=== PATIENT | male | born 1995 | race Caucasian/White ===

== ENCOUNTER 2017-11-28 05:42 | Day surgery (SDC) | payer OTHER ==
[2017-11-28] MEDS ORDERED: Ketamine HCl 50 MG/ML IV ONE (05:43)
[2017-11-28] MEDS ORDERED: DIPRIVAN 200 MG/20 ML IV ONE (05:43)
[2017-11-28] MEDS ORDERED: Lactated Ringers 1,000 ML IV ONE (06:04)
[2017-11-28] MEDS ORDERED: Lactated Ringers 1,000 ML IV SCH ×2 (06:30)
[2017-11-28 08:32] VITALS: O2SAT 98
[2017-11-28 08:37] VITALS: BP 152/84; PULSE 152
--- NOTE | 2017-11-28 12:29 | OP ---
SURGERY DATE/TIME: 11/28/2017 0700 PREOPERATIVE DIAGNOSES: 1) Gastroesophageal reflux disease. 2) Chest pain. POSTOPERATIVE DIAGNOSIS: Normal exam. PROCEDURE: Diagnostic EGD. SURGEON: Jacob Noble M.D. ANESTHESIA: MAC by Dejuan Galloway CRNA. ESTIMATED BLOOD LOSS: None. SPECIMENS: None. DESCRIPTION OF PROCEDURE: After informed written consent was obtained, the patient was taken to the endoscopy suite. He underwent monitored anesthesia and a bite block was inserted. The endoscope was inserted into the posterior oropharynx and under direct visualization the esophagus was easily traversed. There were no obvious mucosal abnormalities. Upon entering the stomach there was a normal rugated gastric mucosa free of any lesions or defects. The gastric antrum was free of any ulcerations or abnormalities. The pylorus was traversed and the first and second portions of the duodenum were within normal limits. Upon withdrawal again careful mucosal inspection of all mucosal structures revealed no visible abnormalities. The scope was removed and the patient was transferred to the recovery room in excellent condition.
== END 2017-11-28 08:27 | disposition home or self-care (01) ==
LOC: SDC 05:42
PROVIDERS: ATTEND Family Medicine
DX: K21.9 Gastro-esophageal reflux disease without esophagitis (principal); R07.9 Chest pain, unspecified
CPT/HCPCS: J2704

== ENCOUNTER 2024-06-04 05:56 | Day surgery (SDC) | payer OTHER ==
[2024-06-04] MEDS ORDERED: Lactated Ringers 1,000 ML IV ONE (06:06)
[2024-06-04] MEDS: Lactated Ringers 1,000 ML IV SCH (06:47)
[2024-06-04] MEDS ORDERED: Versed 2 MG/2 ML Injection ONE (07:02)
[2024-06-04] MEDS ORDERED: Xylocaine-Mpf 2% 5 Ml Vial ONE (07:02)
[2024-06-04] MEDS ORDERED: propofoL IV ONE ×2 (07:03→07:21)
[2024-06-04] MEDS ORDERED: SUBLIMAZE 100 MCG/2 ML ONE (07:23)
[2024-06-04] MEDS ORDERED: ROBINUL ONE (07:25)
[2024-06-04] MEDS ORDERED: ATROPINE SULFATE 1MG ONE (07:27)
[2024-06-04 08:13] VITALS: BP 133/80; PULSE 78; RESP 18; TEMP 97; O2SAT 96
--- NOTE | 2024-06-05 12:24 | OP ---
SURGERY DATE/TIME: 06/04/2024 [id number] PREOPERATIVE DIAGNOSIS: Abdominal pain. POSTOPERATIVE DIAGNOSIS: Normal examination. PROCEDURES: Esophagogastroduodenoscopy and colonoscopy. SURGEON: Jacob Noble MD ANESTHESIA: MAC by Bertrand Leong CRNA ESTIMATED BLOOD LOSS: Minimal. SPECIMEN: Two cold forceps biopsies taken from the duodenum for celiac and 2 random cold forceps biopsies from the sigmoid colon. DESCRIPTION OF PROCEDURE AND FINDINGS: After informed written consent was obtained, the patient was taken to the endoscopy suite. He was placed in left lateral decubitus position and bite block was inserted. Anesthesia was titrated to the desired level of consciousness. Then, the endoscope was inserted in the posterior oropharynx and under direct visualization the esophagus was traversed. Esophageal mucosa had a normal mucosal appearance. Upon entering the stomach, the GE junction appeared normal. The stomach had a normal rugated gastric mucosa, free of any lesions or abnormalities. Pylorus was traversed, and the duodenum had a normal mucosal appearance as well. Two random cold forceps biopsies were taken to rule out celiac from the duodenum. The remainder of exam was unremarkable upon withdrawal of the scope. The scope was removed, and the scopes were switched. Digital rectal exam showed normal sphincter tone and no internal lesions. The scope was inserted in the rectum and sequentially the entire colonic mucosa was traversed. The level of the cecum was reached and verified under direct visualization of the ileocecal valve. Upon withdrawal, careful mucosal inspection revealed no gross abnormalities. Two random cold forceps biopsies were taken from the sigmoid colon due to the patient's left upper quadrant pain symptomatology. These were done to rule out collagenous colitis. Prior to withdrawal, retroflexion showed no internal lesions. The scope was removed, and the patient was transferred to the recovery room in good condition.
== END 2024-06-04 08:19 | disposition home or self-care (01) ==
LOC: SDC 05:56
PROVIDERS: ATTEND Family Medicine
DX: R10.84 Generalized abdominal pain (principal)
CPT/HCPCS: J0461; J2250; J2704; J3010